=== PATIENT | female | born 1940 | race African-American/Black ===

== ENCOUNTER 2024-02-23 15:43 | Emergency (ER) | payer OTHER ==
[~2024-02-23] VITALS: Ht 167.6 cm; Wt 100.0 kg
[2024-02-23 15:50] VITALS: O2SAT 99
[2024-02-23] MEDS: MORPHINE SULFATE 4 MG/ML INJ (FOR IV/IM USE) IV STA (16:05)
[2024-02-23] MEDS: ONDANSETRON HCL 4MG/2ML INJ IV ONE (16:15)
[2024-02-23 17:02] LABS: HEMATOCRIT. 42.6 % (36.0-48.0); HEMOGLOBIN. 13.7 g/dL (12.0-16.0); MEAN CORPUSCULAR HEMOGLOBIN 27.5 pg (28.0-32.0); MEAN CORPUSCULAR HGB CONC 32.2 g/dL (31.0-37.0); MEAN CORPUSCULAR VOLUME 85.5 fL (81.0-99.0); MEAN PLATELET VOLUME 8.7 fl (7.4-10.4); PLATELET 317 x1000/uL (130-400); RED BLOOD CELL COUNT 4.98 mill/uL (4.2-5.4); RED CELL DISTRIBUTION WIDTH 15.8 % (11.6-14.6); WHITE BLOOD COUNT 12.2 x1000/uL (4.5-11.0)
[2024-02-23 17:03] LABS: DIFFERENTIAL COMMENT 1
[2024-02-23 17:09] LABS: CHLORIDE 102 mEq/L (98-107); SODIUM 138 mEq/L (136-145)
[2024-02-23 17:11] LABS: CALCIUM 10.3 mg/dL (8.7-10.4); CARBON DIOXIDE 28 mEq/L (21-32)
[2024-02-23 17:16] LABS: CREATININE 0.9 mg/dL (0.6-1.0); GLUCOSE 123 mg/dL (70-105)
[2024-02-23 17:17] LABS: ALANINE AMINOTRANSFERASE 18 IU/L (10-49); UREA NITROGEN BLOOD 10 mg/dL (9-23)
[2024-02-23 17:18] LABS: ALBUMIN 4.5 g/dL (3.2-4.8); ASPARTATE AMINOTRANSFERASE 26 IU/L (<34); BILIRUBIN DIRECT 0.4 mg/dL (<=3.0); ETHANOL BLOOD < 10 mg/dL (<10)
[2024-02-23 17:19] LABS: PROTEIN TOTAL 7.3 g/dL (6.0-8.3)
[2024-02-23 17:33] LABS: PLATELET ESTIMATE NORMAL
[2024-02-23 18:04] LABS: TROPONIN I HIGH SENSITIVITY < 4 ng/L (3.0-34)
[2024-02-23 22:05] VITALS: BP 113/59; PULSE 81; RESP 20; TEMP 98.2
[2024-02-23] MEDS: SODIUM CHLORIDE 0.9% 1,000 ML IV ONE (22:31)
[2024-02-23] MEDS: CEFTRIAXONE 1GM/50ML 50 ML IV NR (22:32)
== END 2024-02-24 01:10 | disposition short-term general hospital (02) ==
LOC: ER 15:43 → CANBEDREQ 02-24 01:25
DX: K43.9 Ventral hernia without obstruction or gangrene (principal); I11.0 Hypertensive heart disease with heart failure; I50.9 Heart failure, unspecified; J44.9 Chronic obstructive pulmonary disease, unspecified; Z85.9 Personal history of malignant neoplasm, unspecified
CPT/HCPCS: 80076; 80048; 80320; 83605; 83690; 85025; 85610; 84484; 36415; 74176; 76705; 96365; 96375; 99285; J0696; J2405; J2270; G0480

== ENCOUNTER 2025-01-30 23:42 | Emergency (ER) | payer OTHER ==
[~2025-01-30] VITALS: Ht 170.2 cm; Wt 113.0 kg
[2025-01-30 23:44] VITALS: O2SAT 94
[2025-01-31 01:13] LABS: HEMATOCRIT. 43.9 % (36.0-48.0); HEMOGLOBIN. 13.7 g/dL (12.0-16.0); MEAN CORPUSCULAR HEMOGLOBIN 25.5 pg (28.0-32.0); MEAN CORPUSCULAR HGB CONC 31.2 g/dL (31.0-37.0); MEAN CORPUSCULAR VOLUME 81.8 fL (81.0-99.0); PLATELET 428 x1000/uL (130-400); RED BLOOD CELL COUNT 5.37 mill/uL (4.2-5.4); RED CELL DISTRIBUTION WIDTH 16.7 % (11.6-14.6); WHITE BLOOD COUNT 8.3 x1000/uL (4.5-11.0)
[2025-01-31] MEDS: ACETAMINOPHEN 1000MG/100ML 100 ML IV ONE (01:15)
[2025-01-31] MEDS: ONDANSETRON HCL 4MG/2ML INJ IV ONE (01:15)
[2025-01-31 01:24] LABS: DIFFERENTIAL COMMENT 1
[2025-01-31 01:26] LABS: CHLORIDE 102 mEq/L (98-107); POTASSIUM 4.5 mEq/L (3.5-5.1); SODIUM 139 mEq/L (136-145)
[2025-01-31 01:27] LABS: CALCIUM 9.4 mg/dL (8.7-10.4); CARBON DIOXIDE 27 mEq/L (21-32)
[2025-01-31 01:32] LABS: CREATININE 0.7 mg/dL (0.6-1.0); ETHANOL BLOOD < 10 mg/dL (<10); GLUCOSE 135 mg/dL (70-105); UREA NITROGEN BLOOD 9 mg/dL (9-23)
[2025-01-31 01:33] LABS: TROPONIN I HIGH SENSITIVITY 5 ng/L (3.0-34)
[2025-01-31 03:56] LABS: *AMPHETAMINES SCREEN URINE NEGATIVE (NEGATIVE); *BARBITURATES SCREEN URINE NEGATIVE (NEGATIVE); *BENZODIAZEPINES SCREEN URINE NEGATIVE (NEGATIVE); *COCAINE SCREEN URINE NEGATIVE (NEGATIVE); CANNABINOID URINE SCREEN NEGATIVE (NEGATIVE); METHADONE URINE SCREEN NEGATIVE (NEGATIVE); OPIATES URINE SCREEN NEGATIVE (NEGATIVE); PHENCYCLIDINE URINE SCREEN NEGATIVE (NEGATIVE)
[2025-01-31 03:57] LABS: ECSTASY MDMA SCREEN URINE NEGATIVE (NEGATIVE)
[2025-01-31 04:21] LABS: INR 1.1; PARTIAL THROMBOPLASTIN TIME 23.1 sec (23.4-31.0); PROTHROMBIN TIME 11.8 sec (9.6-11.0)
[2025-01-31] MEDS: IOHEXOL-350 100 ML BOTTLE ONE (07:09)
[2025-01-31 07:18] LABS: ANISOCYTOSIS 1+; HYPOCHROMASIA 1+; PLATELET ESTIMATE SLIGHTLY INCREASED
[2025-01-31 07:34] VITALS: BP 130/65; PULSE 81; RESP 18; TEMP 36.8; O2SAT 95
== END 2025-01-31 08:48 | disposition short-term general hospital (02) ==
LOC: ER 23:42 → EDBEDREQ 01-31 00:10 → ENRESERV 01-31 07:01 → CANBEDREQ 01-31 08:32 → ER 01-31 08:48
DX: K56.609 Unspecified intestinal obstruction, unspecified as to partial versus complete obstruction (principal); K42.9 Umbilical hernia without obstruction or gangrene; I11.0 Hypertensive heart disease with heart failure; I50.9 Heart failure, unspecified; J44.9 Chronic obstructive pulmonary disease, unspecified; K43.9 Ventral hernia without obstruction or gangrene; Z85.038 Personal history of other malignant neoplasm of large intestine; I48.91 Unspecified atrial fibrillation; Z79.899 Other long term (current) drug therapy
CPT/HCPCS: 99285; 80305; 80048; 80320; 83880; 83605; 85025; 85610; 85730; 84484; 36415; 74174; 71045; 93005; 96365; 96375; Q9967; J2405; G0480; J0131